=== PATIENT | female | born 1955 | race Caucasian/White ===

== ENCOUNTER 2025-01-02 08:50 | Day surgery (SDC) | payer MEDICARE ==
[~2025-01-02] VITALS: Ht 157.5 cm; Wt 102.1 kg
[~2025-01-02 08:50] MED LIST: Aspir 8181 MG PO; EZET10 PO; FISH OIL 1,0001 EA10 PO; HYDCHL25 PO; LEVSOD88 PO; METO50ER PO; Vitamin D1000 UNI1 PO
[2025-01-02 10:17] VITALS: BP 150/78
--- NOTE | 2025-01-02 10:48 | NUR ---
PT A&OX4, BREATHING RA, NO COMPLAINTS. UPPER DENTURE OUT. Ambulatory in Day Surgery Patient confirms NPO status and agrees with scheduled surgery. Pre-Op teaching done. Pt verbalizes understanding. Patient States Post-Procedure ride home has been arranged.
--- NOTE | 2025-01-02 10:57 | NUR ---
01/02/25 1057 Gita Castillo History, Chart, Medications and Allergies reviewed before start of procedure. O2 VIA POM INTACT THROUGHOUT SEDATION/PROCEDURE. MONITOR INTACT WITH CONTINUOUS PULSE OXIMETRY, CONTINUOUS END TITAL CO2, 3-LEAD EKG AND INTERMITTENT BLOOD PRESSURE. See Anesthesia record FROM DR. HASSAN
[2025-01-02 11:33] VITALS: BP 130/91
--- NOTE | 2025-01-02 12:08 | NUR ---
Patient up to Ambulate independently. Gait steady. Discharge instructions reviewed with patient. Patient verbalizes understanding. Copy given to patient to take home. Discharged via wheelchair to private car for ride home.
== END 2025-01-02 12:07 | disposition home or self-care (01) ==
LOC: ORSCMMR 08:50 → ORD 10:00 → ORSCMMR 12:07
PROVIDERS: Internal Medicine Gastroenterology
PROC: 0DBL8ZX Excision of Transverse Colon, Via Natural or Artificial Opening Endoscopic, Diagnostic (ICD-10-PCS; principal; 2025-01-02 10:00)
PROC: 0DBM8ZX Excision of Descending Colon, Via Natural or Artificial Opening Endoscopic, Diagnostic (ICD-10-PCS; principal; 2025-01-02 10:00)
PROC: 0DBN8ZX Excision of Sigmoid Colon, Via Natural or Artificial Opening Endoscopic, Diagnostic (ICD-10-PCS; principal; 2025-01-02 10:00)
DX: Z12.11 Encounter for screening for malignant neoplasm of colon (principal); R19.5 Other fecal abnormalities; D12.3 Benign neoplasm of transverse colon; D12.4 Benign neoplasm of descending colon; D12.5 Benign neoplasm of sigmoid colon; K63.5 Polyp of colon; I10 Essential (primary) hypertension; E03.9 Hypothyroidism, unspecified; Z79.899 Other long term (current) drug therapy; E66.01 Morbid (severe) obesity due to excess calories; Z68.41 Body mass index [BMI] 40.0-44.9, adult
CPT/HCPCS: 82947; 88305; J2704; J7120

== ENCOUNTER 2025-02-12 18:07 | Inpatient (IN) | payer MEDICARE ==
[~2025-02-12] VITALS: Ht 154.9 cm; Wt 98.6 kg
[2025-02-12 19:11] LABS: BASOPHILS ABSOLUTE AUTO 0.10 K/mm3 (0.00-0.23); BASOPHILS PERCENT AUTO 1 % (0-2); EOSINOPHILS ABSOLUTE AUTO 0.34 K/mm3 (0.00-0.68); EOSINOPHILS PERCENT AUTO 4 % (0-6); Hematocrit 37.9 % (33.0-51.0); Hemoglobin 12.0 g/dL (11.5-16.0); IMMATURE GRAN ABSOLUTE AUTO 0.05 K/mm3 (0.00-0.10); IMMATURE GRAN PERCENT AUTO 1 % (0-1); LYMPHOCYTES ABSOLUTE AUTO 1.29 K/mm3 (0.84-5.20); LYMPHOCYTES PERCENT AUTO 15 % (21-46); MONOCYTES ABSOLUTE AUTO 0.83 K/mm3 (0.16-1.47); MONOCYTES PERCENT AUTO 10 % (4-13); Mean Corpuscular HGB Conc 31.7 g/dL (31.5-36.5); Mean Corpuscular Volume 91 fL (80-100); NEUTROPHILS ABSOLUTE AUTO 6.08 K/mm3 (1.96-9.15); NEUTROPHILS PERCENT AUTO 70 % (41-73); NRBC ABSOLUTE 0.00 K/mm3 (0.00-0.02); NRBC Auto 0.0 /100 WBC (0.0-0.2); Platelet Count 161 K/mm3 (150-400); RDW Coefficient Variation 14.2 % (11.7-14.2); RDW Standard Deviation 47.7 fL (35.1-46.3)
[2025-02-12] MEDS ORDERED: Ondansetron HCl 2 MG / ML 2ML Vial IV ONE (19:20)
[2025-02-12] MEDS ORDERED: NS 1,000 ML IV SCH (19:20)
[2025-02-12] MEDS ORDERED: EZETIMIBE10 M6 PO (19:53)
[2025-02-12 19:55] LABS: Source, Urine Clean Catch
[2025-02-12 19:56] LABS: Alanine Aminotransfer (ALT/SGP 52.0 U/L (12-78); Albumin, Blood 3.8 g/dL (3.4-5.0); Albumin/Globulin Ratio 0.7 (0.8-1.8); Anion Gap 14.0 mmol/L (3-11); Aspartate Aminotrans (AST/SGOT 57.0 U/L (12-37); Bilirubin, Total 0.5 mg/dL (0.1-1.0); Blood Urea Nitrogen 93.0 mg/dL (8-24); CO2, Blood 18.0 mmol/L (21-32); Calcium, Blood 9.5 mg/dL (8.5-10.1); Chloride, Blood 107.0 mmol/L (98-108); Creatinine, Blood 6.86 mg/dL (0.40-1.00); Globulin, Blood 5.4 g/dL (2.2-4.0); Glucose, Blood 144.0 mg/dL (70-99); Potassium, Blood 3.9 mmol/L (3.5-5.5); Sodium, Blood 135.0 mmol/L (136-145); Total Protein, Blood 9.2 g/dL (6.4-8.2)
[2025-02-12 20:26] LABS: Bilirubin, Urine Neg (Neg); Glucose Qualitative, Urine 2+ (Neg); Ketones, Urine Neg (Neg); Leukocyte Esterase, Urine Neg (Neg); Protein, Urine 2+ (Neg); Specific Gravity, Urine 1.010 (1.003-1.022); Urobilinogen, Urine NORM (Normal)
[2025-02-12 20:45] LABS: Color, Urine Pale Yellow (P-Yellow)
[2025-02-12 20:48] LABS: Thyroid Stimulating Hormone 4.84 uIU/mL (0.360-4.800)
[2025-02-12] MEDS ORDERED: NiCARdipine HCL 50 MG in NS 250 ML IV SCH (22:35)
[2025-02-12] MEDS ORDERED: NiCARdipine HCL 25 MG/10 ML (2.5MG/ML) IV ONE (23:00)
[2025-02-12] MEDS ORDERED: Ondansetron HCl 2 MG / ML 2ML Vial ONE (23:38)
[2025-02-12] MEDS ORDERED: Metoclopramide HCl 5MG / ML 2ML Vial IV PRN (23:40)
[2025-02-12] MEDS ORDERED: Ondansetron HCl 2 MG / ML 2ML Vial IV PRN (23:40)
[2025-02-13] VITALS (7 sets, daily range): BP systolic 127–174; BP diastolic 77–102
[2025-02-13 06:33] LABS: BASOPHILS ABSOLUTE AUTO 0.06 K/mm3 (0.00-0.23); BASOPHILS PERCENT AUTO 1 % (0-2); EOSINOPHILS ABSOLUTE AUTO 0.24 K/mm3 (0.00-0.68); EOSINOPHILS PERCENT AUTO 4 % (0-6); Hematocrit 33.8 % (33.0-51.0); Hemoglobin 11.1 g/dL (11.5-16.0); IMMATURE GRAN ABSOLUTE AUTO 0.03 K/mm3 (0.00-0.10); IMMATURE GRAN PERCENT AUTO 0 % (0-1); LYMPHOCYTES ABSOLUTE AUTO 1.26 K/mm3 (0.84-5.20); LYMPHOCYTES PERCENT AUTO 19 % (21-46); MONOCYTES ABSOLUTE AUTO 0.65 K/mm3 (0.16-1.47); MONOCYTES PERCENT AUTO 10 % (4-13); Mean Corpuscular HGB Conc 32.8 g/dL (31.5-36.5); Mean Corpuscular Volume 89 fL (80-100); NEUTROPHILS ABSOLUTE AUTO 4.54 K/mm3 (1.96-9.15); NEUTROPHILS PERCENT AUTO 67 % (41-73); NRBC ABSOLUTE 0.00 K/mm3 (0.00-0.02); NRBC Auto 0.0 /100 WBC (0.0-0.2); Platelet Count 145 K/mm3 (150-400); RDW Coefficient Variation 14.2 % (11.7-14.2); RDW Standard Deviation 46.2 fL (35.1-46.3)
[2025-02-13 06:47] LABS: Prothrombin Time Results 12.2 Sec (9.7-11.5)
[2025-02-13 07:01] LABS: Alanine Aminotransfer (ALT/SGP 50.0 U/L (12-78); Albumin, Blood 3.6 g/dL (3.4-5.0); Albumin/Globulin Ratio 0.8 (0.8-1.8); Anion Gap 14.0 mmol/L (3-11); Aspartate Aminotrans (AST/SGOT 54.0 U/L (12-37); Bilirubin, Total 0.7 mg/dL (0.1-1.0); Blood Urea Nitrogen 96.0 mg/dL (8-24); CO2, Blood 20.0 mmol/L (21-32); Calcium, Blood 9.2 mg/dL (8.5-10.1); Chloride, Blood 108.0 mmol/L (98-108); Creatinine, Blood 7.0 mg/dL (0.40-1.00); Globulin, Blood 4.7 g/dL (2.2-4.0); Glucose, Blood 139.0 mg/dL (70-99); Potassium, Blood 3.8 mmol/L (3.5-5.5); Sodium, Blood 138.0 mmol/L (136-145); Total Protein, Blood 8.3 g/dL (6.4-8.2)
[2025-02-13] MEDS ORDERED: Heparin Sodium,Porcine 5,000 UNIT/0.5 ML SDV SC SCH (09:00)
[2025-02-13] MEDS ORDERED: Darbepoetin (Pharmacy Consult) SC SCH (15:40)
[2025-02-13] MEDS ORDERED: D5W-NS 1,000 ML IV SCH (15:50)
--- NOTE | 2025-02-13 19:10 | NUR ---
End of shift summary: Patient is alert and oriented x4; pleasant and cooperative with care. Patient with both, Urology and Nephrology, consults today; Dr. Carrillo and Dr. Maldonado. Patient has been independent in room throughout day. Patient denied SOB, CP, N/V/D, or pain; did have some minor discomfort in right flank that she denied need for medication. Brown catheter attempted per Dr. Carrillo and unsuccessful d/t pain when inflating baloon despite multiple repositioning and urine output confirming correct placement. All medications administered per EMAR. Bed in lowest position, call light within reach. Report given to night nurse.
[2025-02-14] VITALS (9 sets, daily range): BP systolic 124–169; BP diastolic 61–81
--- NOTE | 2025-02-14 04:51 | NUR ---
SHIFT SUMMARY - NO ACUTE CHANGES THIS SHIFT. BLADDER SCAN X1 WITH 15CC AFTER PVR. PT HAS BEEN SLEEPING THROUGHOUT MOST OF THE NIGHT. PT HAS BEEN UP INDEPENDENTLY TO THE BRP. CALL LIGHT WITHIN REACH. BED IN LOW POSITION. NO REQUEST FOR PAIN MEDICATION THROUGHOUT THE NIGHT.
[2025-02-14 07:17] LABS: BASOPHILS ABSOLUTE AUTO 0.06 K/mm3 (0.00-0.23); BASOPHILS PERCENT AUTO 1 % (0-2); EOSINOPHILS ABSOLUTE AUTO 0.41 K/mm3 (0.00-0.68); EOSINOPHILS PERCENT AUTO 6 % (0-6); Hematocrit 33.3 % (33.0-51.0); Hemoglobin 10.9 g/dL (11.5-16.0); IMMATURE GRAN ABSOLUTE AUTO 0.03 K/mm3 (0.00-0.10); IMMATURE GRAN PERCENT AUTO 1 % (0-1); LYMPHOCYTES ABSOLUTE AUTO 1.39 K/mm3 (0.84-5.20); LYMPHOCYTES PERCENT AUTO 21 % (21-46); MONOCYTES ABSOLUTE AUTO 0.59 K/mm3 (0.16-1.47); MONOCYTES PERCENT AUTO 9 % (4-13); Mean Corpuscular HGB Conc 32.7 g/dL (31.5-36.5); Mean Corpuscular Volume 89 fL (80-100); NEUTROPHILS ABSOLUTE AUTO 4.06 K/mm3 (1.96-9.15); NEUTROPHILS PERCENT AUTO 62 % (41-73); NRBC ABSOLUTE 0.00 K/mm3 (0.00-0.02); NRBC Auto 0.0 /100 WBC (0.0-0.2); Platelet Count 123 K/mm3 (150-400); RDW Coefficient Variation 14.3 % (11.7-14.2); RDW Standard Deviation 46.3 fL (35.1-46.3)
[2025-02-14 07:34] LABS: Albumin, Blood 3.4 g/dL (3.4-5.0); Anion Gap 12 mmol/L (3-11); Blood Urea Nitrogen 92 mg/dL (8-24); CO2, Blood 19 mmol/L (21-32); Calcium, Blood 8.8 mg/dL (8.5-10.1); Chloride, Blood 108 mmol/L (98-108); Creatinine, Blood 6.73 mg/dL (0.40-1.00); Glucose, Blood 242 mg/dL (70-99); Magnesium, Blood 1.9 mg/dL (1.6-2.4); Phosphorus, Blood 6.1 mg/dL (2.5-4.9); Potassium, Blood 3.3 mmol/L (3.5-5.5); Sodium, Blood 136 mmol/L (136-145)
[2025-02-14 08:34] LABS: Albumin, Blood 3.5 g/dL (3.4-5.0); Anion Gap 14 mmol/L (3-11); Blood Urea Nitrogen 94 mg/dL (8-24); CO2, Blood 18 mmol/L (21-32); Calcium, Blood 8.9 mg/dL (8.5-10.1); Chloride, Blood 110 mmol/L (98-108); Creatinine, Blood 6.54 mg/dL (0.40-1.00); Glucose, Blood 154 mg/dL (70-99); Phosphorus, Blood 5.9 mg/dL (2.5-4.9); Potassium, Blood 3.4 mmol/L (3.5-5.5); Sodium, Blood 139 mmol/L (136-145)
[2025-02-14 10:03] LABS: BASOPHILS ABSOLUTE AUTO 0.11 K/mm3 (0.00-0.23); BASOPHILS PERCENT AUTO 1 % (0-2); EOSINOPHILS ABSOLUTE AUTO 0.56 K/mm3 (0.00-0.68); EOSINOPHILS PERCENT AUTO 6 % (0-6); Hematocrit 33.7 % (33.0-51.0); Hemoglobin 11.0 g/dL (11.5-16.0); IMMATURE GRAN ABSOLUTE AUTO 0.03 K/mm3 (0.00-0.10); IMMATURE GRAN PERCENT AUTO 0 % (0-1); LYMPHOCYTES ABSOLUTE AUTO 1.71 K/mm3 (0.84-5.20); LYMPHOCYTES PERCENT AUTO 20 % (21-46); MONOCYTES ABSOLUTE AUTO 0.92 K/mm3 (0.16-1.47); MONOCYTES PERCENT AUTO 11 % (4-13); Mean Corpuscular HGB Conc 32.6 g/dL (31.5-36.5); Mean Corpuscular Volume 88 fL (80-100); NEUTROPHILS ABSOLUTE AUTO 5.40 K/mm3 (1.96-9.15); NEUTROPHILS PERCENT AUTO 62 % (41-73); NRBC ABSOLUTE 0.00 K/mm3 (0.00-0.02); NRBC Auto 0.0 /100 WBC (0.0-0.2); Platelet Count 163 K/mm3 (150-400); RDW Coefficient Variation 14.2 % (11.7-14.2); RDW Standard Deviation 45.5 fL (35.1-46.3)
[2025-02-14 10:28] LABS: Prothrombin Time Results 11.9 Sec (9.7-11.5)
[2025-02-14] MEDS ORDERED: NS 500 ML IV ONE (12:32)
[2025-02-14] MEDS ORDERED: FentaNYL Citrate 50 MCG/ML 2 ML Injection ONE (12:48)
[2025-02-14] MEDS ORDERED: Midazolam HCl 1MG / ML 2ML Vial ONE (12:48)
[2025-02-14] MEDS ORDERED: HydrALAZINE HCl 20 MG / ML 1ML Vial ONE (13:10)
[2025-02-14] MEDS ORDERED: Phenylephrine HCl 100 MCG/ML-NS 10MLSYR (1MG/10ML) ONE (13:28)
--- NOTE | 2025-02-14 14:49 | NUR ---
PT BACK IN ROOM AND COMFORTABLE IN BED. REPORTS HEADACHE, NO OTHER PAIN AT THIS TIME, VSS. PT REPOSITIONED AND GOWN CHANGED. BILATERAL NEPH TUBE SITE DRESSINGS ARE CLEAN AND INTACT. PT ADVISED TO USE BED ROBLERO UNTIL BP PROVEN STABLE. FAMILY AT BEDSIDE. BILAT NEPH TUBES DRAINING TO GRAVITY.
--- NOTE | 2025-02-14 17:42 | NUR ---
PT TOLORATING PO INTAKE. NO CONCERNS AT END OF SHIFT. FAMILY IS AT BEDSIDE
[2025-02-15 03:48] VITALS: BP 143/92
[2025-02-15 06:12] LABS: BASOPHILS ABSOLUTE AUTO 0.06 K/mm3 (0.00-0.23); BASOPHILS PERCENT AUTO 1 % (0-2); EOSINOPHILS ABSOLUTE AUTO 0.37 K/mm3 (0.00-0.68); EOSINOPHILS PERCENT AUTO 5 % (0-6); Hematocrit 32.6 % (33.0-51.0); Hemoglobin 10.6 g/dL (11.5-16.0); IMMATURE GRAN ABSOLUTE AUTO 0.02 K/mm3 (0.00-0.10); IMMATURE GRAN PERCENT AUTO 0 % (0-1); LYMPHOCYTES ABSOLUTE AUTO 1.23 K/mm3 (0.84-5.20); LYMPHOCYTES PERCENT AUTO 17 % (21-46); MONOCYTES ABSOLUTE AUTO 0.70 K/mm3 (0.16-1.47); MONOCYTES PERCENT AUTO 10 % (4-13); Mean Corpuscular HGB Conc 32.5 g/dL (31.5-36.5); Mean Corpuscular Volume 89 fL (80-100); NEUTROPHILS ABSOLUTE AUTO 4.77 K/mm3 (1.96-9.15); NEUTROPHILS PERCENT AUTO 67 % (41-73); NRBC ABSOLUTE 0.00 K/mm3 (0.00-0.02); NRBC Auto 0.0 /100 WBC (0.0-0.2); Platelet Count 145 K/mm3 (150-400); RDW Coefficient Variation 14.3 % (11.7-14.2); RDW Standard Deviation 46.8 fL (35.1-46.3)
[2025-02-15 06:22] LABS: Albumin, Blood 3.4 g/dL (3.4-5.0); Anion Gap 12 mmol/L (3-11); Blood Urea Nitrogen 76 mg/dL (8-24); CO2, Blood 19 mmol/L (21-32); Calcium, Blood 8.9 mg/dL (8.5-10.1); Chloride, Blood 113 mmol/L (98-108); Creatinine, Blood 5.53 mg/dL (0.40-1.00); Glucose, Blood 166 mg/dL (70-99); Magnesium, Blood 1.8 mg/dL (1.6-2.4); Phosphorus, Blood 5.4 mg/dL (2.5-4.9); Potassium, Blood 3.2 mmol/L (3.5-5.5); Sodium, Blood 141 mmol/L (136-145)
--- NOTE | 2025-02-15 06:40 | NUR ---
SHIFT SUMMARY PT A&Ox4 AND PLEASANT. NO C/O PAIN. BILATERAL NEPHROSTOMY TUBES DRAINING BRIGHT RED URINE. NPO AT MIDNIGHT FOR POSSIBLE PROCUDRE WITH DR. ZIMMERMAN. CONTINUING TO INFUSE D5w AT 75ml/hr. VSS. AT BEDSIDE T/O NIGHT. BED IN LOWEST POSITION AND CALL LIGHT IN REACH.
[2025-02-15 07:18] VITALS: BP 146/76
[2025-02-15 11:36] VITALS: BP 120/76
[2025-02-15 16:02] VITALS: BP 147/71
--- NOTE | 2025-02-15 17:46 | NUR ---
NO ACUTE CHANGES, FAMILY HELPFUL WITH CARE, ILIESTOMYS DRAINED, RIGHT SIDE DRAINING MORE THAN LEFT. TOLERATING THE RENAL DIET. DR BURDEN ROUNDED IN AM, ONE PERSON ASSIST, NO PROBLEMDS SWALLOWING, RENAL DIET EDUCATION GIVEN, CALL LIGHT WITH IN REACH, WILL RELAY TO PM RN
[2025-02-15 20:12] VITALS: BP 139/76
[2025-02-15 23:44] VITALS: BP 143/74
[2025-02-16 03:53] VITALS: BP 123/73
--- NOTE | 2025-02-16 05:35 | NUR ---
NO AUTE CANGES DURING SHIFT. PATIENT IS ALERT AND ORIENTED X4. PATIENT IS FLUIDS RUNNING AT 75 ML/H. PATIENT IS 1 ASSIST TO THE BATHROOM. BILATERAL NEPHROSTOMIES IN PLACE. RIGHT TUBE HAS MORE OUTPUT THAN LEFT. PATIENT WAS GIVEN TYLENOL FOR PAIN. PATIENT ABLE TO TURN SELF. BED IN LOW POSITION WITH WHEELS LOCKED. CALL LIGHT WITHIN REACH
[2025-02-16 05:58] LABS: BASOPHILS ABSOLUTE AUTO 0.05 K/mm3 (0.00-0.23); BASOPHILS PERCENT AUTO 1 % (0-2); EOSINOPHILS ABSOLUTE AUTO 0.29 K/mm3 (0.00-0.68); EOSINOPHILS PERCENT AUTO 5 % (0-6); Hematocrit 29.4 % (33.0-51.0); Hemoglobin 9.7 g/dL (11.5-16.0); IMMATURE GRAN ABSOLUTE AUTO 0.02 K/mm3 (0.00-0.10); IMMATURE GRAN PERCENT AUTO 0 % (0-1); LYMPHOCYTES ABSOLUTE AUTO 1.07 K/mm3 (0.84-5.20); LYMPHOCYTES PERCENT AUTO 19 % (21-46); MONOCYTES ABSOLUTE AUTO 0.66 K/mm3 (0.16-1.47); MONOCYTES PERCENT AUTO 12 % (4-13); Mean Corpuscular HGB Conc 33.0 g/dL (31.5-36.5); Mean Corpuscular Volume 88 fL (80-100); NEUTROPHILS ABSOLUTE AUTO 3.52 K/mm3 (1.96-9.15); NEUTROPHILS PERCENT AUTO 63 % (41-73); NRBC ABSOLUTE 0.00 K/mm3 (0.00-0.02); NRBC Auto 0.0 /100 WBC (0.0-0.2); Platelet Count 118 K/mm3 (150-400); RDW Coefficient Variation 14.5 % (11.7-14.2); RDW Standard Deviation 46.9 fL (35.1-46.3)
[2025-02-16 06:26] LABS: Albumin, Blood 3.1 g/dL (3.4-5.0); Anion Gap 10 mmol/L (3-11); Blood Urea Nitrogen 68 mg/dL (8-24); CO2, Blood 21 mmol/L (21-32); Calcium, Blood 8.4 mg/dL (8.5-10.1); Chloride, Blood 113 mmol/L (98-108); Creatinine, Blood 4.14 mg/dL (0.40-1.00); Glucose, Blood 151 mg/dL (70-99); Magnesium, Blood 1.6 mg/dL (1.6-2.4); Phosphorus, Blood 4.7 mg/dL (2.5-4.9); Potassium, Blood 3.3 mmol/L (3.5-5.5); Sodium, Blood 141 mmol/L (136-145)
[2025-02-16 07:52] VITALS: BP 130/76
[2025-02-16 11:31] VITALS: BP 143/85
[2025-02-16 15:35] VITALS: BP 130/69
[2025-02-16] MEDS ORDERED: Darbepoetin Alfa In Albumn Sol 40 MCG/0.4 ML SC SCH (16:00)
[2025-02-16 19:47] VITALS: BP 135/83
[2025-02-16 23:55] VITALS: BP 111/68
--- NOTE | 2025-02-17 04:39 | NUR ---
NO ACUTE CHANGES DURING SHIFT. PATIENT IS ALERT AND ORIENTED X4. TELE MONITOR IN PLACE. PATIENT IS UP TO BATHROOM WITH SBA ASSIST. BILATERAL NEPHROSTOMIES ARE IN PLACE AND DRAINING RED. PATIENT GIVEN TYLENOL FOR PAIN. BED IN LOW POSITION WITH THE WHEELS LOCKED. CALL LIGHT WITHIN REACH.
[2025-02-17 04:54] VITALS: BP 134/95
[2025-02-17 05:51] LABS: Hematocrit 32.4 % (33.0-51.0); Hemoglobin 10.4 g/dL (11.5-16.0)
[2025-02-17 06:28] LABS: Albumin, Blood 3.3 g/dL (3.4-5.0); Anion Gap 12 mmol/L (3-11); Blood Urea Nitrogen 54 mg/dL (8-24); CO2, Blood 21 mmol/L (21-32); Calcium, Blood 8.8 mg/dL (8.5-10.1); Chloride, Blood 111 mmol/L (98-108); Creatinine, Blood 3.42 mg/dL (0.40-1.00); Glucose, Blood 192 mg/dL (70-99); Magnesium, Blood 1.5 mg/dL (1.6-2.4); Phosphorus, Blood 4.1 mg/dL (2.5-4.9); Potassium, Blood 3.3 mmol/L (3.5-5.5); Sodium, Blood 141 mmol/L (136-145)
[2025-02-17] MEDS ORDERED: Mag Sulfate 1 GM/D5% 100ML 100 ML IV STA (07:30)
[2025-02-17 07:58] VITALS: BP 112/69
[2025-02-17] MEDS ORDERED: NS 250 ML IV PRN (08:10)
[2025-02-17 11:49] VITALS: BP 135/69
--- NOTE | 2025-02-17 14:18 | NUR ---
RHYTHM STRIP REVIEW THIS NURSE REVIEWED TELE RHYTHM STRIP. THIS NURSE AGREES WITH THE EXPERIM[employer] DEVELOPER'S INTERPRETATION, HOWEVER THIS NURSE CALLED M'BERTO ABOUT THE BASELINE WHICH APPEARED TO BE ARTIFACT. M'BERTO CONFIRMED THAT THE STRIP CONTAINED ARTIFACT BUT THAT PATIENT WAS VERY CLEARLY IN NSR ON TELE AT THAT TIME. DISCUSSED WITH SHERLYN Villafana
[2025-02-17] MEDS ORDERED: SODBIC650 PO (14:47)
[2025-02-17] MEDS ORDERED: ARANESP40 MCG/0.1 SC (14:49)
--- NOTE | 2025-02-17 16:06 | NUR ---
SHIFT/DISCHARGE SUMMARY: PATIENT A+O X4 DURING THIS SHIFT. MEDICATED PER EMAR, SEE FOR DETAILS. PATIENT EDUCATED ON BL NEPHROSTOMIES AND DRESSING CHANGES. THIS NURSE EDUCATED PATIENT ON DISCHARGE INSTRUCTIONS AND NEW MEDICATION. DIRECTED PATIENT TO CALL BACK TO MEDICAL FLOOR FOR QUESTIONS AND CONCERNS. PATIENT VERBALIZED UNDERSTANDING. NEPHROSTOMIES CDI AND HAVE GREAT URINARY OUTPUT. THIS NURSE MEASURED 325ML FROM R NEPH, AND 125 FROM LEFT. SPOKE WITH PATIENT IN REGAURDS TO KEEPING APPOINTMENTS WITH NEPHROLOGY, UROLOGY, AND PCP. PATIENT GIVEN ALL BELONGINGS BACK BEFORE DISCHARGE. IV REMOVED AND TELE SENT BACK TO PCU.
== END 2025-02-17 15:45 | disposition home or self-care (01) | DRG 694 ==
LOC: ER 18:07 → SURS 23:35 → MEDS 23:35
PROVIDERS: Internal Medicine; Internal Medicine Nephrology; Student in an Organized Health Care Education/Training Program; ADMIT Student in an Organized Health Care Education/Training Program
PROC: 0T9B70Z Drainage of Bladder with Drainage Device, Via Natural or Artificial Opening (ICD-10-PCS; 2025-02-13)
PROC: 0T9430Z Drainage of Left Kidney Pelvis with Drainage Device, Percutaneous Approach (ICD-10-PCS; principal; 2025-02-14)
PROC: 0T9330Z Drainage of Right Kidney Pelvis with Drainage Device, Percutaneous Approach (ICD-10-PCS; 2025-02-14)
PROC: BT131ZZ Fluoroscopy of Bilateral Kidneys using Low Osmolar Contrast (ICD-10-PCS; 2025-02-14)
DX: N13.1 Hydronephrosis with ureteral stricture, not elsewhere classified (principal); E87.20 Acidosis, unspecified; E87.1 Hypo-osmolality and hyponatremia; N17.0 Acute kidney failure with tubular necrosis; E03.9 Hypothyroidism, unspecified; C67.9 Malignant neoplasm of bladder, unspecified; K74.60 Unspecified cirrhosis of liver; E78.5 Hyperlipidemia, unspecified; N18.30 Chronic kidney disease, stage 3 unspecified; I12.9 Hypertensive chronic kidney disease with stage 1 through stage 4 chronic kidney disease, or unspecified chronic kidney disease; E86.9 Volume depletion, unspecified; D63.1 Anemia in chronic kidney disease; E87.6 Hypokalemia; E83.42 Hypomagnesemia; Z79.82 Long term (current) use of aspirin; Z79.890 Hormone replacement therapy; Z87.891 Personal history of nicotine dependence
CPT/HCPCS: 36415; 74176; 76770; 76937; 80053; 80069; 81001; 82550; 83735; 84439; 84443; 84481; 85014; 85018; 85025; 85610; 93005; 93010; 96361; 96374; 99152; 99153; 99285-25; A9270; C1725; C1729; C1769; C1894; C2625; J0360; J0881; J1644; J2250; J2371; J2405; J2765; J3010; J3475; J7030; J7040; J7042; J7050; Q9967

== ENCOUNTER 2025-03-04 19:04 | Emergency (ER) | payer MEDICARE ==
[~2025-03-04] VITALS: Ht 154.9 cm; Wt 97.1 kg
[~2025-03-04 19:04] MED LIST changes: +ARANESP40 MCG/0.1 SC; +EZETIMIBE10 M6 PO; +SODBIC650 PO
[2025-03-04 20:33] LABS: BASOPHILS ABSOLUTE AUTO 0.08 K/mm3 (0.00-0.23); BASOPHILS PERCENT AUTO 1 % (0-2); EOSINOPHILS ABSOLUTE AUTO 0.28 K/mm3 (0.00-0.68); EOSINOPHILS PERCENT AUTO 4 % (0-6); Hematocrit 35.7 % (33.0-51.0); Hemoglobin 11.5 g/dL (11.5-16.0); IMMATURE GRAN ABSOLUTE AUTO 0.04 K/mm3 (0.00-0.10); IMMATURE GRAN PERCENT AUTO 1 % (0-1); LYMPHOCYTES ABSOLUTE AUTO 1.57 K/mm3 (0.84-5.20); LYMPHOCYTES PERCENT AUTO 20 % (21-46); MONOCYTES ABSOLUTE AUTO 1.12 K/mm3 (0.16-1.47); MONOCYTES PERCENT AUTO 14 % (4-13); Mean Corpuscular HGB Conc 32.2 g/dL (31.5-36.5); Mean Corpuscular Volume 90 fL (80-100); NEUTROPHILS ABSOLUTE AUTO 4.70 K/mm3 (1.96-9.15); NEUTROPHILS PERCENT AUTO 60 % (41-73); NRBC ABSOLUTE 0.00 K/mm3 (0.00-0.02); NRBC Auto 0.0 /100 WBC (0.0-0.2); Platelet Count 209 K/mm3 (150-400); RDW Coefficient Variation 14.3 % (11.7-14.2); RDW Standard Deviation 46.4 fL (35.1-46.3)
[2025-03-04 21:01] LABS: Alanine Aminotransfer (ALT/SGP 51.0 U/L (12-78); Albumin, Blood 3.3 g/dL (3.4-5.0); Albumin/Globulin Ratio 0.7 (0.8-1.8); Anion Gap 7.0 mmol/L (3-11); Aspartate Aminotrans (AST/SGOT 60.0 U/L (12-37); Bilirubin, Total 0.6 mg/dL (0.1-1.0); Blood Urea Nitrogen 19.0 mg/dL (8-24); CO2, Blood 28.0 mmol/L (21-32); Calcium, Blood 10.0 mg/dL (8.5-10.1); Chloride, Blood 105.0 mmol/L (98-108); Creatinine, Blood 1.71 mg/dL (0.40-1.00); Globulin, Blood 5.0 g/dL (2.2-4.0); Glucose, Blood 143.0 mg/dL (70-99); Potassium, Blood 4.1 mmol/L (3.5-5.5); Sodium, Blood 136.0 mmol/L (136-145); Total Protein, Blood 8.3 g/dL (6.4-8.2)
[2025-03-05 02:48] LABS: Source, Urine Clean Catch
[2025-03-05 02:56] LABS: Bilirubin, Urine Neg (Neg); Glucose Qualitative, Urine Neg (Neg); Ketones, Urine Neg (Neg); Leukocyte Esterase, Urine 3+ (Neg); Protein, Urine 3+ (Neg); Specific Gravity, Urine 1.010 (1.003-1.022); Urobilinogen, Urine NORM (Normal)
[2025-03-05 02:58] LABS: Color, Urine Yellow (P-Yellow)
[2025-03-05 03:06] LABS: White Blood Cells, Urine 50-100 /hpf (0-5)
[2025-03-05 04:30] VITALS: BP 152/77
[2025-03-05] MEDS ORDERED: CefTRIAXone Sodium 1,000 MG in NS 50 ML IV ONE (04:55)
[2025-03-05] MEDS ORDERED: NS 1,000 ML IV SCH (04:55)
[2025-03-05] MEDS ORDERED: CEFP200 PO (05:02)
== END 2025-03-05 07:24 | disposition home or self-care (01) ==
LOC: ER 19:04
PROVIDERS: Physician Assistant
DX: R82.81 Pyuria (principal); E86.0 Dehydration; E03.9 Hypothyroidism, unspecified; I10 Essential (primary) hypertension; Z79.890 Hormone replacement therapy; Z79.899 Other long term (current) drug therapy; Z93.6 Other artificial openings of urinary tract status
CPT/HCPCS: 80053; 81001; 85025; 99282; J7030

== ENCOUNTER 2025-03-11 11:50 | Emergency (ER) | payer MEDICARE ==
[~2025-03-11] VITALS: Ht 154.9 cm; Wt 97.1 kg
[~2025-03-11 11:50] MED LIST changes: +CEFP200 PO
[2025-03-11 12:42] LABS: BASOPHILS ABSOLUTE AUTO 0.06 K/mm3 (0.00-0.23); BASOPHILS PERCENT AUTO 1 % (0-2); EOSINOPHILS ABSOLUTE AUTO 0.05 K/mm3 (0.00-0.68); EOSINOPHILS PERCENT AUTO 1 % (0-6); Hematocrit 33.6 % (33.0-51.0); Hemoglobin 11.1 g/dL (11.5-16.0); IMMATURE GRAN ABSOLUTE AUTO 0.06 K/mm3 (0.00-0.10); IMMATURE GRAN PERCENT AUTO 1 % (0-1); LYMPHOCYTES ABSOLUTE AUTO 1.24 K/mm3 (0.84-5.20); LYMPHOCYTES PERCENT AUTO 13 % (21-46); MONOCYTES ABSOLUTE AUTO 1.14 K/mm3 (0.16-1.47); MONOCYTES PERCENT AUTO 12 % (4-13); Mean Corpuscular HGB Conc 33.0 g/dL (31.5-36.5); Mean Corpuscular Volume 86 fL (80-100); NEUTROPHILS ABSOLUTE AUTO 7.22 K/mm3 (1.96-9.15); NEUTROPHILS PERCENT AUTO 74 % (41-73); NRBC ABSOLUTE 0.00 K/mm3 (0.00-0.02); NRBC Auto 0.0 /100 WBC (0.0-0.2); Platelet Count 153 K/mm3 (150-400); RDW Coefficient Variation 14.4 % (11.7-14.2); RDW Standard Deviation 45.5 fL (35.1-46.3)
[2025-03-11 13:17] LABS: Alanine Aminotransfer (ALT/SGP 29.0 U/L (12-78); Albumin, Blood 2.8 g/dL (3.4-5.0); Albumin/Globulin Ratio 0.6 (0.8-1.8); Anion Gap 10.0 mmol/L (3-11); Aspartate Aminotrans (AST/SGOT 28.0 U/L (12-37); Bilirubin, Total 0.9 mg/dL (0.1-1.0); Blood Urea Nitrogen 31.0 mg/dL (8-24); CO2, Blood 23.0 mmol/L (21-32); Calcium, Blood 9.2 mg/dL (8.5-10.1); Chloride, Blood 103.0 mmol/L (98-108); Creatinine, Blood 3.13 mg/dL (0.40-1.00); Globulin, Blood 4.9 g/dL (2.2-4.0); Glucose, Blood 187.0 mg/dL (70-99); Potassium, Blood 3.9 mmol/L (3.5-5.5); Sodium, Blood 132.0 mmol/L (136-145); Total Protein, Blood 7.7 g/dL (6.4-8.2)
[2025-03-11] MEDS ORDERED: CefTRIAXone Sodium 1,000 MG in NS 100 ML IV ONE (17:45)
[2025-03-11 17:55] VITALS: BP 135/85
[2025-03-11] MEDS ORDERED: Bactrim Ds Tab1 EACH PO (18:18)
== END 2025-03-11 18:54 | disposition home or self-care (01) ==
LOC: ER 11:50
PROVIDERS: Physician Assistant
DX: N12 Tubulo-interstitial nephritis, not specified as acute or chronic (principal); T83.032A Leakage of nephrostomy catheter, initial encounter; Y84.6 Urinary catheterization as the cause of abnormal reaction of the patient, or of later complication, without mention of misadventure at the time of the procedure; I10 Essential (primary) hypertension; E03.9 Hypothyroidism, unspecified; E78.5 Hyperlipidemia, unspecified; Z79.890 Hormone replacement therapy; Z79.899 Other long term (current) drug therapy
CPT/HCPCS: 74176; 80053; 85025; 99284-25

== ENCOUNTER 2025-04-30 08:26 | Day surgery (SDC) | payer MEDICARE ==
[~2025-04-30] VITALS: Ht 154.9 cm; Wt 90.6 kg
[~2025-04-30 08:26] MED LIST changes: +Bactrim Ds Tab1 EACH PO
[2025-04-30] MEDS ORDERED: CeFAZolin Sodium 2,000 MG VIAL ONE (08:47)
[2025-04-30] MEDS ORDERED: FentaNYL Citrate 50 MCG/ML 2 ML Injection ONE ×2 (09:58→11:15)
[2025-04-30] MEDS ORDERED: Dexamethasone Sod Phos 10 MG/ML 1ML VIAL ONE (10:00)
[2025-04-30] MEDS ORDERED: Ondansetron HCl 2 MG / ML 2ML Vial ONE (10:34)
[2025-04-30] MEDS ORDERED: Lidocaine 2% Jelly Uro-Jet UR ONE (10:43)
[2025-04-30] MEDS ORDERED: HYDROcodone 5-APAP 325 TAB ONE (11:15)
[2025-04-30 11:43] VITALS: BP 132/82
--- NOTE | 2025-04-30 12:30 | NUR ---
04/30/25 1230 Peña Lopez 3 LEAD NOT PRINTED. PT MONITORED WITH 3 LEAD WITH REGAR RATE AND RHYTHM.
[2025-05-02] MEDS ORDERED: TRAM50 PO (19:35)
[2025-05-02] MEDS ORDERED: ACET500 PO (19:36)
== END 2025-04-30 12:28 | disposition home or self-care (01) ==
LOC: ORSCSDS 08:26
PROVIDERS: Urology
PROC: 0TBB8ZZ Excision of Bladder, Via Natural or Artificial Opening Endoscopic (ICD-10-PCS; principal; 2025-04-30 10:00)
DX: C67.9 Malignant neoplasm of bladder, unspecified (principal); N13.30 Unspecified hydronephrosis; N17.9 Acute kidney failure, unspecified; F41.9 Anxiety disorder, unspecified; I10 Essential (primary) hypertension; E03.9 Hypothyroidism, unspecified; E78.5 Hyperlipidemia, unspecified; R73.03 Prediabetes; E66.01 Morbid (severe) obesity due to excess calories; Z68.37 Body mass index [BMI] 37.0-37.9, adult; Z79.899 Other long term (current) drug therapy; Z87.891 Personal history of nicotine dependence
CPT/HCPCS: 82947; 88307; 88341; 88342; A9270; J0690; J1100; J2405; J2704; J3010

== ENCOUNTER 2025-05-02 12:20 | Observation (INO) | payer MEDICARE | END 2025-05-03 13:27 | disposition home or self-care (01) | LOC: ER 12:20 → MEDS 12:21 | PROVIDERS: ADMIT Internal Medicine | DX: T83.032A Leakage of nephrostomy catheter, initial encounter (principal); N13.30 Unspecified hydronephrosis; E78.5 Hyperlipidemia, unspecified; E03.9 Hypothyroidism, unspecified; N18.31 Chronic kidney disease, stage 3a; I12.9 Hypertensive chronic kidney disease with stage 1 through stage 4 chronic kidney disease, or unspecified chronic kidney disease; Z87.891 Personal history of nicotine dependence; Z88.8 Allergy status to other drugs, medicaments and biological substances; Z79.890 Hormone replacement therapy; Z79.899 Other long term (current) drug therapy ==

== ENCOUNTER 2025-06-10 06:01 | Day surgery (SDC) | payer MEDICARE ==
[~2025-06-10] VITALS: Ht 154.9 cm; Wt 87.3 kg
[~2025-06-10 06:01] MED LIST changes: +ACET500 PO; +TRAM50 PO
[2025-06-10] MEDS ORDERED: VITAMIN B121000 MCG PO (06:30)
[2025-06-10] MEDS ORDERED: CeFAZolin Sodium 2,000 MG in NS 100 ML IV SCH (06:45)
[2025-06-10 06:47] VITALS: BP 150/86
--- NOTE | 2025-06-10 06:57 | NUR ---
Pre-Op teaching done. Pt verbalizes understanding. IN TO SDS VIA W/C, ABLE TO WALK SHORT DISTANCE. History, Chart, Medications and Allergies reviewed before start of procedure. Patient confirms NPO status and agrees with scheduled surgery. Patient States Post-Procedure ride home has been arranged.
[2025-06-10] MEDS ORDERED: Bupivacaine 0.5% HCl 5 MG/ML 30MLVIAL ONE (07:10)
[2025-06-10] MEDS ORDERED: Midazolam HCl 1MG / ML 2ML Vial IV SCH (07:20)
[2025-06-10] MEDS ORDERED: FentaNYL Citrate 50 MCG/ML 2 ML Injection ONE (07:26)
[2025-06-10] MEDS ORDERED: Phenylephrine HCl 100 MCG/ML-NS 10MLSYR (1MG/10ML) ONE (07:39)
[2025-06-10] MEDS ORDERED: Albuterol 2.5 MG/3 ML VIAL INH PRN (07:40)
[2025-06-10] MEDS ORDERED: Metoclopramide HCl 5MG / ML 2ML Vial IV PRN (07:45)
[2025-06-10] MEDS ORDERED: Ondansetron HCl 2 MG / ML 2ML Vial IV PRN (07:45)
[2025-06-10] MEDS ORDERED: HYDROmorphone HCl/Pf 1MG SYR IV PRN (07:45)
[2025-06-10] MEDS ORDERED: FentaNYL Citrate 50 MCG/ML 2 ML Injection IV PRN ×2 (07:45)
[2025-06-10] MEDS ORDERED: Ketorolac Tromethamine 30mg Vial ONE (08:04)
[2025-06-10] MEDS ORDERED: Ondansetron HCl 2 MG / ML 2ML Vial ONE (08:07)
[2025-06-10] MEDS ORDERED: Dexamethasone Sod Phos 10 MG/ML 1ML VIAL ONE (08:07)
[2025-06-10 08:10] VITALS: BP 133/79
[2025-06-10 08:15] VITALS: BP 112/75
[2025-06-10] MEDS ORDERED: HYDROcodone 5-APAP 325 TAB PO PRN (08:15)
[2025-06-10 08:20] VITALS: BP 92/59
[2025-06-10 08:26] VITALS: BP 120/75
[2025-06-10 08:39] VITALS: BP 121/73
--- NOTE | 2025-06-10 08:52 | NUR ---
Discharge instructions reviewed with patient. Patient verbalizes understanding. Copy given to patient to take home. Dressing's c/d/i. Patient States Post-Procedure ride home has been arranged. Discharged via wheelchair to private car for ride home.
== END 2025-06-10 08:55 | disposition home or self-care (01) ==
LOC: ORSCMMR 06:01 → ORSCSDS 06:01 → ORD 07:30 → ORSCSDS 08:55
PROVIDERS: Surgery
PROC: 0JH63WZ Insertion of Totally Implantable Vascular Access Device into Chest Subcutaneous Tissue and Fascia, Percutaneous Approach (ICD-10-PCS; principal; 2025-06-10 07:30)
DX: C67.8 Malignant neoplasm of overlapping sites of bladder (principal); I10 Essential (primary) hypertension; K21.9 Gastro-esophageal reflux disease without esophagitis; G47.33 Obstructive sleep apnea (adult) (pediatric); E78.5 Hyperlipidemia, unspecified; E03.9 Hypothyroidism, unspecified; R73.03 Prediabetes; Z79.899 Other long term (current) drug therapy; Z87.891 Personal history of nicotine dependence
CPT/HCPCS: 77001; C1788; J0690; J1100; J1642; J1885; J2250; J2371; J2405; J2704; J3010; J7120